=== PATIENT | female | born 1990 | race Caucasian/White ===

== ENCOUNTER 2018-07-07 15:29 | Emergency (ER) | payer MEDICAID, SELFPAY ==
[~2018-07-07 15:29] MED LIST: Iopamidol 370 76% 125 ML VIAL FS ONE
[2018-07-07 15:52] LABS: #Basophils 0.1 thou/uL (0.0-0.2); #Eosinphils 0.3 thou/uL (0.0-0.7); #Lymphocytes 2.9 thou/uL (1.20-3.40); #Monocytes 0.5 thou/uL (0.11-0.59); #Neutrophils 6.4 thou/uL (1.40-6.50); %Eosinophils 2.5 % (0.0-10.0); %Lymphocytes 28.6 % (21.0-51.0); %Monocytes 4.9 % (0.0-10.0); %Neutrophils 62.9 % (42.0-75.0); Hemoglobin 13.3 g/dL (12.0-16.0); Mean Corpuscular HGB CONC 33.4 g/dL (32.0-36.0); Mean Corpuscular Hemoglobin 30.3 pg (27.0-31.0); Mean Corpuscular Volume 90.8 fL (78.0-98.0); Mean Platelet Volume 7.1 fL (7.4-10.4); Platelet Count 283 thou/uL (130-400); Red Blood Cell (RBC) Count 4.39 mill/uL (4.20-5.40); White Blood Cell (WBC) Count 10.1 thou/uL (4.8-10.8)
[2018-07-07 16:05] LABS: Anion Gap 15 mmol/L (10-20); BUN (Urea Nitrogen) 11 mg/dL (7.0-18.7); Calc. Creatinine Clearance 0 mL/min (70-130); Calcium 9.6 mg/dL (7.8-10.44); Carbon Dioxide 25 mmol/L (22-29); Chloride 105 mmol/L (98-107); Estimated GFR-MDRD Greater than 90; Glucose 87 mg/dL (70-105); Potassium 3.9 mmol/L (3.5-5.1); Sodium 141 mmol/L (136-145)
[2018-07-07 16:12] LABS: CKMB 0.7 ng/mL (0-6.6); Troponin I Less than 0.010 ng/mL (< 0.028)
--- NOTE | 2018-07-07 16:54 | RAD ---
CHEST 1 VIEW: HISTORY: Chest pain. COMPARISON: None. FINDINGS: Normal cardiac silhouette. Pulmonary vessels and hilum are normal. No consolidation or mass. No pn eumothorax or osseous abnormalities. IMPRESSION: No acute cardiopulmonary process. POS: [facility]
--- NOTE | 2018-07-07 19:27 | CT ---
CTA THORAX WITH CONTRAST: 07/07/2018 (Computed Tomographic Angiography, chest(noncoronary) with contrast material, and image post processi ng) (PE protocol) HISTORY: A 28-year-old female with chest pain and elevated D-dimer. TECHNIQUE: IV injection of iodinated contrast: Administered. Scan acquisition timing attempted to coincide with iodinated contrast bolus reaching maximal density in pulmonary arteries. 3D MIP reconstructions. FINDINGS: Pulmonary thromboembolism: None. Lungs: Clear. Pneumothorax: None. Pleural effusion: None. Thoracic aorta: No aneurysm or dissection. Mediastinum: No lymphadenopathy or other mass. Gloria: No lymphadenopathy or other mass. IMPRESSION: Normal. grace[] POS: [facility]
== END 2018-07-07 17:35 | disposition home or self-care (01) ==
LOC: MADERS 15:29
DX: R07.89 Other chest pain (principal); F17.210 Nicotine dependence, cigarettes, uncomplicated
CPT/HCPCS: 71045; 71275; 80048; 82553; 83880; 84484; 85025; 85379; 93005; 94760

== ENCOUNTER 2018-07-14 10:09 | Outpatient (CLI) | payer MEDICAID ==
--- NOTE | 2018-07-14 12:51 | ULT ---
Transabdominal transvaginal pelvic ultrasound: INDICATION: History of amenorrhea. TECHNIQUE: Joshua scale, color Doppler, and vascular duplex with spectral analysis was performed of the pelvis via transabdominal and transvaginal approach. FINDINGS: The uterus measures 9.2 x 5.2 x 3.5 cm. The endometrial stripe measures 1.1 cm, which is within norm al limits for a premenopausal female. The left ovary was not identified. The right ovary measured 3.2 x 2.7 x 2.3 cm. There is normal vascular flow to the right ovary. Ther e are small follicles within the right ovary which appear within normal limits. No free fluid is identified. There are small nabothian cysts seen within the upper cervix. IMPRESSION: 1. Endometrial stripe of 11 mm is within normal limits for a premenopausal female. 2. Small nabothian cysts. 3. Nonvisualization of the left ovary. POS: [facility]
== END 2018-07-14 10:10 | disposition home or self-care (01) ==
LOC: MADULT 10:09
PROVIDERS: ATTEND Family Medicine
DX: N91.1 Secondary amenorrhea (principal); N88.8 Other specified noninflammatory disorders of cervix uteri
CPT/HCPCS: 76856

== ENCOUNTER 2018-08-09 11:42 | Emergency (ER) | payer MEDICAID ==
[2018-08-09] MEDS ORDERED: Dexamethasone 4 MG TAB ONE (12:25)
--- NOTE | 2018-08-09 13:13 | RAD ---
LEFT SHOULDER 3 VIEWS: Date: 08/09/18 HISTORY: Shoulder pain. FINDINGS: There is no evidence of fracture or dislocation. AC joint is normally aligned. IMPRESSION: Unremarkable exam. POS: [facility]
== END 2018-08-09 13:12 | disposition home or self-care (01) ==
LOC: MADERS 11:42
DX: S46.912A Strain of unspecified muscle, fascia and tendon at shoulder and upper arm level, left arm, initial encounter (principal); Z87.891 Personal history of nicotine dependence; X58.XXXA Exposure to other specified factors, initial encounter
CPT/HCPCS: J8540